=== PATIENT | male | born 1950 | race Caucasian/White ===

== ENCOUNTER → 2018-04-06 | Outpatient (CLI) | payer BC ==
[2018-04-06 11:40] LABS: CREATININE 1.2 mg/dL (0.6-1.3)
== END ==
LOC: M.MRI 10:59
PROVIDERS: Internal Medicine
DX: I67.82 Cerebral ischemia (principal); D49.6 Neoplasm of unspecified behavior of brain; I10 Essential (primary) hypertension; Z87.898 Personal history of other specified conditions

== ENCOUNTER → 2018-08-26 | Outpatient (CLI) | payer BC | LOC: M.RAD 16:16 | DX: M25.722 Osteophyte, left elbow (principal); M77.8 Other enthesopathies, not elsewhere classified ==

== ENCOUNTER → 2019-03-31 | Outpatient (CLI) | payer BC ==
[2019-03-31 11:06] LABS: CREATININE 1.1 mg/dL (0.6-1.3)
== END ==
LOC: M.LAB 10:27 → M.CT 10:27
PROVIDERS: Internal Medicine Gastroenterology
DX: N28.1 Cyst of kidney, acquired (principal); K38.8 Other specified diseases of appendix; R94.4 Abnormal results of kidney function studies; K56.41 Fecal impaction; N40.0 Benign prostatic hyperplasia without lower urinary tract symptoms; M47.817 Spondylosis without myelopathy or radiculopathy, lumbosacral region

== ENCOUNTER → 2019-05-08 | Day surgery (SDC) | payer BC, MEDICARE ==
[~2019-05-08] MED LIST: AMOXICILLIN 50500 MG PO; CIPRO500 M1 PO; COLACE100 MG PO; D-20002000 UNIT PO; FLOMAX0.4 MG PO; FLONASE 0.05%50 MCG NASAL; KEFLEX500 M1 PO; LEVSIN-SL0.125 MG PO; LIPITOR 20 MG T20 M1 PO; MIRALAX119 GM PO; NORCO 5-325 TA1 EAC1 PO; PHENAZOPYRIDIN200 M2 PO; SILDENAFIL20 MG PO; TESTOSTERO200 MG/11 IM
[2019-05-08 06:47] LABS: HEMATOCRIT 48.3 % (42.0-52.0); HEMOGLOBIN 17.1 gm/dL (14.0-18.0); MCH 32.8 pg (26.0-34.0); MCHC 35.5 g/dL (28.0-37.0); MCV 92.6 fL (80.0-100.0); MPV 7.7 fl. (7.2-11.1); RBC 5.22 mil/uL (4.50-6.00); RDW-CV 13.2 % (10.5-14.5)
[2019-05-08 06:54] LABS: CALCIUM 9.2 mg/dL (8.5-10.1); CREATININE 1.2 mg/dL (0.6-1.3); POTASSIUM 4.1 mmol/L (3.5-5.1)
[2019-05-08 06:59] LABS: ALBUMIN 3.9 g/dL (3.4-5.0); TOTAL BILIRUBIN 1.1 mg/dL (<0.1-1.0); TOTAL PROTEIN 6.9 g/dL (6.4-8.2)
--- NOTE | 2019-05-09 08:41 | EKG ---
[place] [address] ELECTROCARDIOGRAM REPORT Name: JAJA BOB Room: [facility]#: [id number] Admission: 05/08/19 Attend Phys: Jorge Luis Chinchilla DO Discharge: Date of : 50 Report #: [id number] THIS REPORT FOR: //name// [facility] Test Date: 2019-05-08 Test Time: 07:27:22 Pat Name: JAJA BOB Department: Room: Gender: M Incident Response Analyst: : 1950 Requested By: Jorge Luis Chinchilla Order Number: [id number] Reading MD: Micah Meza Measurements Intervals Bixby Rate: 71 P: 74 SD: 194 QRS: 6 QRSD: 85 T: 17 QT: 373 QTc: 406 Interpretive Statements Sinus rhythm Minimal ST elevation, anterior leads, consider early repolarization No previous ECG available for comparison Electronically Signed On 05-09-2019 8:41:46 CDT by Micah Meza [email or web address] <ELECTRONICALLY SIGNED> By: Micah Meza MD, [facility] 05/09/19 0841 0727 0727 Micah Meza MD, FAC /EPI
--- NOTE | 2019-05-12 13:07 | PATH ---
[address] [address] PATHOLOGY RPT PROCEDURE Name: ROBSON BOB Room: [facility] Brian#: [id number] Admission: 05/08/19 Date of : 50 Discharge: Report #: [id number] Path Case #: [id number] [facility] Accession Number: [id number] . 01 Material submitted: . PART A: appendix - APPENDIX PART B: axillary tail of breast - RIGHT AXILLARY SKIN TAGS. Modifiers: right . 01 Clinical history: . Appendicolith . 02 Diagnosis: A. Appendix: - Benign and noninflamed appendix with prominent luminal fecalith and with fibrofatty obliteration of distal tip lumen. . B. Right axillary skin tags: - Multiple benign squamous papillomas, several with chronic inflammation. . ([place]; 05/11/2019) RUFINO 05/11/2019 1757 Local . 02 Electronically signed: . Alvaro Barton MD, Pathologist NPI- [id number] . 01 Gross description: . A. The specimen is received in formalin, labeled "Robson Bob, appendix" and consists of an appendix measuring 4.5 cm in length and ranging from 0.3 cm (tip) to 1.5 cm (proximal margin) in diameter. There is mesoappendix lining the entire specimen measuring up to 2.4 cm thick. The margin is closed with a linear line of michelle and inked black. Sectioning reveals a dilated proximal lumen which becomes pinpoint at the tip. Occluding the proximal margin is a fecalith measuring 1.3 x 0.9 cm. Surveillance Operator sections are submitted in A1-A2. . B. The specimen is received in formalin, labeled "Robson Bob, right axillary skin tags" and consists of 3 pink-shi skin tag measuring between 0.3 x 0.3 x 0.2 cm and 0.8 x 0.5 x 0.4 cm. The margins are inked black and they are entirely submitted in B1. ([facility]; 05/09/2019) . After initial microscopic examination the remainder of the appendix is submitted in A3-A4. ([facility]; 05/11/2019) SYU/SYU 05/12/2019 [facility] Local . 02 Pathologist provided ICD-10: [place] [address] PATHOLOGY RPT PROCEDURE Name: BOBROBSON SPENCER Room: [facility]#: [id number] Admission: 05/08/19 Date of : 50 Discharge: Report #: [id number] Path Case #: [id number] K38.1, K38.8, L91.8 . 02 CPT . 477739, [id number] Specimen Comment: A courtesy copy of this report has been sent to Specimen Comment: [phone], . Specimen Comment: Report sent to / DR CARMEN Performed at: [id number] [facility] [address], [place], [place] [id number] MD Cesar Bowen MD Phone: [phone] Performed at: 02 [facility] [address], [place], [place] [id number] MD Alvaro Barton MD Phone: [phone]
--- NOTE | 2019-05-30 13:35 | OP ---
[address] [address] OPERATIVE REPORT Name: JAJA BOB Room: [facility].#: [id number] Admission: 05/08/19 Attend Phys: Jorge Luis Chinchilla DO Discharge: Date of : 50 Report #: [id number] THIS REPORT FOR: //name// CC: Jorge Luis Mustafa MD DICTATED BY: Carla Zee DO DATE OF SERVICE: 05/08/2019 PREOPERATIVE DIAGNOSES: Appendicolith and chronic appendicitis as well as right axillary skin tags x 3. POSTOPERATIVE DIAGNOSES: Appendicolith and chronic appendicitis as well as right axillary skin tags x 3. PRIMARY SURGEON: Jorge Luis Chinchilla DO DIRECTOR CHILD ABUSE THERAPY: Carla Zee DO, PGY2 SECOND RETAIL SALESMAN: DEANNA Bedoya PROCEDURE: Laparoscopic appendectomy and excision of skin tags x 3 in the right axilla. ANESTHESIA: General and local. ESTIMATED BLOOD LOSS: 20 mL. SPECIMENS: Appendix and skin tags x 3. INDICATIONS FOR PROCEDURE: The patient is a 69-year-old gentleman who presented to our office after a screening colonoscopy where he was noted to have a large visible appendicolith in the appendiceal orifice and then had a followup CAT scan, which also confirmed the presence of a very large appendicolith. At that time, he was not having any symptoms. No right lower quadrant pain. No nausea, vomiting, diarrhea, fever or chills. It was recommended that he undergo laparoscopic appendectomy. However, the patient had a previously scheduled vacation that he wanted to go on prior to surgery. It was discussed with him that he was at high risk for developing acute appendicitis and could even develop further appendiceal perforation. He voiced complete understanding and still wished to go on his vacation and schedule surgery at a later time, he was scheduled for surgery. The procedure, risks, benefits and possible complications to include bleeding, infection, injury to surrounding structures and the risks of surgery were discussed with the patient in [place] [address] OPERATIVE REPORT Name: PAULINOJAJAPATTI SORENSON Room: [facility].#: [id number] Admission: 05/08/19 Attend Phys: Jorge Luis Chinchilla DO Discharge: Date of : 50 Report #: [id number] complete understanding and wished to proceed. DESCRIPTION OF PROCEDURE: Informed consent was obtained. The patient was then taken to the operating room and placed supine on the operating room table. General anesthesia was induced without difficulty. The patient's left arm was tucked at the side. Preoperative antibiotics were given. SCDs were placed on bilateral lower extremities. The patient was prepped and draped in the standard sterile fashion. Timeout was performed to ensure correct patient and procedure. We began by making a vertical supraumbilical incision using a #11 blade scalpel. Incision was carried down through subcutaneous tissue using electrocautery. [place] and electrocautery were used to dissect down to the level of the fascia. The fascia was scored with electrocautery and grasped between 2 Kochers. Fascia was elevated and then incised using electrocautery. Peritoneum was entered bluntly using a hemostat. The 0 Vicryl stay sutures were placed on either side of our fascial opening. A 5 mm Thompson trocar was then inserted through our fascial opening. Abdomen was insufflated without difficulty. Laparoscopic camera was inserted and a sweep of the anterior abdominal contents was performed. There were no obvious abnormalities in the right lower quadrant. Upon further inspection of the anterior abdominal contents, it was noted that the patient does have bilateral inguinal hernias. Otherwise, there were no obvious abnormalities. A suprapubic 5 mm trocar was inserted under direct visualization. The laparoscopic Angelika was used to explore the right lower quadrant. The patient was then placed in the Trendelenburg position with the left side down. Cecum was identified. Appendix was not readily identified. At this point, our left lower quadrant 12 mm trocar was inserted under direct visualization. Following further inspection of the right lower quadrant, appendix was noted to dive down in a retrocecal position. Harmonic scalpel was then used to take down periappendiceal adhesions. At this point, we were able to visualize what appeared to be a large stone within the appendiceal orifice at the junction of the appendix and the cecum. We continued our dissection using the Harmonic scalpel. Harmonic scalpel was used to take down the mesoappendix until we reached the base of the appendix. A 45 mm purple load on the Endo-GAYATRI stapler was then used to come across the base of the appendix and a second 45 mm purple load on the Endo-GAYATRI stapler was used to come across the remainder of the base of the appendix so that we were able to include the area with a large appendicolith. The appendix was then placed within the EndoCatch bag. Right lower quadrant was inspected to ensure hemostasis. Suction crm analyst was used to irrigate the right lower quadrant. A final sweep of the anterior abdominal contents was performed. Our left lower quadrant 12 mm trocar was closed using PMI closure device. The suprapubic 5 mm trocar was removed under direct visualization. Abdomen was desufflated. The fascia at the supraumbilical incision was closed using 0 Vicryl suture in a gygcgt-td-hgwkb fashion. The subcutaneous tissue was closed using 3-0 Vicryl suture in a simple interrupted and inverted fashion. Skin was closed using 4-0 Monocryl suture in a running subcuticular fashion. Left lower quadrant and suprapubic trocar sites were closed using 4-0 Monocryl suture in a simple interrupted and inverted [address] [address] OPERATIVE REPORT Name: JAJA BOB Room: [facility].#: [id number] Admission: 05/08/19 Attend Phys: Jorge Luis Chinchilla DO Discharge: Date of : 50 Report #: [id number] fashion. Sterile dressings were applied using Mastisol, Steri-Strips, Tegaderm, 4 x 4s and Medipore tape. We then turned our attention to the right axilla. Right axilla was prepped and draped in the standard sterile fashion. Each skin tag was grasped with an Adson forceps and then removed using electrocautery and sent for permanent pathology. Mupirocin was applied to each of the skin tag sites as well as a Band-Aid. The patient tolerated the procedure very well. He was then allowed to awaken in the operating room and was transferred to the PACU in stable condition with plans to discharge home later today. <ELECTRONICALLY SIGNED> By: Jorge Luis Chinchilla DO 05/30/19 1335 0937 1013Amechelle Chinchilla DO /sanjay
== END | disposition home or self-care (01) ==
LOC: M.SUR 06:20
PROVIDERS: Surgery
DX: K38.1 Appendicular concretions (principal); K36 Other appendicitis; L91.8 Other hypertrophic disorders of the skin; Z79.899 Other long term (current) drug therapy; Z98.890 Other specified postprocedural states; Z79.891 Long term (current) use of opiate analgesic

== ENCOUNTER 2019-05-13 09:40 | Emergency (ER) | payer BC, MEDICARE ==
[~2019-05-13] VITALS: Ht 177.8 cm; Wt 93.4 kg
[~2019-05-13 09:40] MED LIST changes: -AMOXICILLIN 50500 MG PO; -CIPRO500 M1 PO; -COLACE100 MG PO; -D-20002000 UNIT PO; -KEFLEX500 M1 PO; -LEVSIN-SL0.125 MG PO; -MIRALAX119 GM PO; -PHENAZOPYRIDIN200 M2 PO; -SILDENAFIL20 MG PO
[2019-05-13] MEDS ORDERED: D-20002000 UNIT PO (10:09)
[2019-05-13] MEDS ORDERED: SILDENAFIL20 MG PO (10:10)
[2019-05-13] MEDS ORDERED: MIRALAX119 GM PO (10:10)
[2019-05-13 10:11] LABS: URINE BILIRUBIN NEGATIVE (Negative); URINE BLOOD TRACE (Negative); URINE CLARITY CLEAR; URINE COLOR YELLOW; URINE GLUCOSE-RANDOM NEGATIVE (Negative); URINE KETONES NEGATIVE (Negative); URINE LEUKOCYTES-REFLEX TRACE (Negative); URINE NITRITE-REFLEX NEGATIVE (Negative); URINE PROTEIN 1+ (Negative)
[2019-05-13 10:30] LABS: SQUAMOUS 0-3 Few /LPF (0-3); URINE WBC-REFLEX >25 Many /HPF (0-5)
[2019-05-13 10:33] LABS: URINE RBC 0-2 Rare /HPF (0-2)
[2019-05-13 10:34] LABS: CASTS None Seen /LPF (None Seen); CRYSTALS None Seen /LPF (None Seen); MUCUS >6 Heavy strn/LPF (None Seen)
[2019-05-13 10:43] LABS: CALCIUM 9.1 mg/dL (8.5-10.1); CREATININE 1.2 mg/dL (0.6-1.3); POTASSIUM 4.2 mmol/L (3.5-5.1)
[2019-05-13] MEDS ORDERED: PHENAZOPYRIDIN200 M2 PO (10:52)
[2019-05-13] MEDS ORDERED: KEFLEX500 M1 PO (10:52)
[2019-05-13 11:11] VITALS: BP 139/69
[2019-05-16] MEDS ORDERED: CIPRO500 M1 PO (15:36)
== END 2019-05-13 11:11 | disposition home or self-care (01) ==
LOC: M.ERS 09:40
PROVIDERS: Emergency Medicine Emergency Medical Services
DX: N39.0 Urinary tract infection, site not specified (principal)

== ENCOUNTER 2019-05-17 09:08 | Inpatient (IN) | payer BC, MEDICARE ==
[~2019-05-17] VITALS: Ht 177.8 cm; Wt 91.2 kg
--- NOTE | ~2019-05-17 | H ---
[address] [address] HISTORY AND PHYSICAL Name: JAJA BOB Room: [address] IN M.R.#: [id number] Admission: 05/17/19 Attend Phys: Silke Scott Discharge: 05/19/19 Date of : 50 Report #: [id number] THIS REPORT FOR: //name// For History and Physical please refer to the handwritten note in the patient's medical record. By: 0649Medical Records Staff AISHA /GIGI
[~2019-05-17 09:08] MED LIST changes: +CIPRO500 M1 PO; +D-20002000 UNIT PO; +KEFLEX500 M1 PO; +MIRALAX119 GM PO; +PHENAZOPYRIDIN200 M2 PO; +SILDENAFIL20 MG PO
[2019-05-17 10:52] VITALS: BP 141/80
[2019-05-17 13:00] LABS: HEMATOCRIT 41.5 % (42.0-52.0); HEMOGLOBIN 14.6 gm/dL (14.0-18.0)
[2019-05-17 13:14] LABS: CALCIUM 8.6 mg/dL (8.5-10.1); CREATININE 1.2 mg/dL (0.6-1.3); MAGNESIUM 2.2 mg/dL (1.8-2.4); POTASSIUM 4.4 mmol/L (3.5-5.1)
[2019-05-17 19:30] VITALS: BP 135/81
[2019-05-17 23:46] VITALS: BP 127/79
[2019-05-18 03:49] VITALS: BP 117/77
[2019-05-18 03:58] LABS: POTASSIUM 4.1 mmol/L (3.5-5.1)
[2019-05-18 04:13] LABS: HEMATOCRIT 40.9 % (42.0-52.0); HEMOGLOBIN 13.8 gm/dL (14.0-18.0); MCH 31.6 pg (26.0-34.0); MCHC 33.7 g/dL (28.0-37.0); MCV 93.9 fL (80.0-100.0); MPV 7.8 fl. (7.2-11.1); RBC 4.36 mil/uL (4.50-6.00); RDW-CV 13.1 % (10.5-14.5); WBC 12.8 thou/uL (4.0-11.0)
[2019-05-18 08:10] VITALS: BP 127/72
[2019-05-18 16:00] VITALS: BP 123/69
[2019-05-18 20:00] VITALS: BP 135/78
[2019-05-18 23:30] VITALS: BP 151/87
[2019-05-19 04:00] VITALS: BP 150/84
[2019-05-19 07:30] VITALS: BP 147/90
[2019-05-19 08:24] LABS: HEMATOCRIT 43.6 % (42.0-52.0); HEMOGLOBIN 15.2 gm/dL (14.0-18.0); MCH 32.4 pg (26.0-34.0); MCHC 34.8 g/dL (28.0-37.0); RBC 4.69 mil/uL (4.50-6.00); RDW-CV 12.9 % (10.5-14.5); WBC 9.4 thou/uL (4.0-11.0)
[2019-05-19 08:32] LABS: CALCIUM 7.9 mg/dL (8.5-10.1); CREATININE 1.2 mg/dL (0.6-1.3); POTASSIUM 3.7 mmol/L (3.5-5.1)
[2019-05-19 09:34] VITALS: BP 147/90
[2019-05-19] MEDS ORDERED: AMOXICILLIN 50500 MG PO (09:54)
[2019-05-19] MEDS ORDERED: COLACE100 MG PO (09:54)
[2019-05-19] MEDS ORDERED: NORCO 5-325 TA1 EAC1 PO (09:55)
[2019-05-19] MEDS ORDERED: LEVSIN-SL0.125 MG PO (10:20)
--- NOTE | 2019-05-19 17:06 | PATH ---
[address] [address] PATHOLOGY RPT PROCEDURE Name: ROBSON BOB Room: [address] IN .R.#: [id number] Admission: 05/17/19 Date of : 50 Discharge: 05/19/19 Report #: [id number] Path Case #: [id number] [facility] Accession Number: [id number] . 01 Material submitted: . prostate - PROSTATE CHIPS . 01 Clinical history: . Prostate abscess, BPH . 02 Diagnosis: Prostate chips: - Benign prostatic tissue with chronic and extensive acute inflammation. . ([place]:mml; 05/19/2019) QL 05/19/2019 1124 Local . 02 Electronically signed: . Alvaro Barton MD, Pathologist NPI- [id number] . 01 Gross description: . Received in cytology fixative labeled "Robson Bob, prostate chips," is a 12 g aggregate of pink-shi to shi-brown soft tissue fragments measuring 7.4 x 5.6 x 1.2 cm in aggregate dimensions. The specimen is submitted representatively in cassettes A1 through A7. (DAC; 05/18/2019) XDC/XDC 05/18/2019 1215 Local . 02 Pathologist provided ICD-10: N41.1, N41.0 . 02 CPT . 790085 Specimen Comment: A courtesy copy of this report has been sent to [phone] Specimen Comment: [phone] Specimen Comment: Report sent to / DR CARMEN Performed at: [address], [place] [id number] MD Cesar Bowen MD Phone: [phone] Performed at: 02 [facility] [address], [place], [place] [id number] MD Alvaro Barton MD Phone: [phone]
--- NOTE | 2019-06-05 16:56 | OP ---
[address] [address] OPERATIVE REPORT Name: BOB,JAJA DELTA Room: [address] IN M.R.#: [id number] Admission: 05/17/19 Attend Phys: Silke Scott Discharge: 05/19/19 Date of : 50 Report #: [id number] THIS REPORT FOR: //name// CC: Stas Mustafa SURGEON: Stas Bustillos MD PREOPERATIVE DIAGNOSES: Prostatic abscess and BPH. POSTOPERATIVE DIAGNOSIS: Prostatic abscess and BPH. PROCEDURE: Panendoscopy and cystoscopy and transurethral resection of the prostate, this requires a 22-modifier secondary to prostatic abscess and infected prostate. COMPLICATIONS: No complication. INDICATIONS: This is a 69-year-old white male with a history of BPH. He began having increased urinary symptoms about 6 weeks ago, but did slightly improve; however, he developed severe symptoms after having an elective appendectomy and on exam, but 1 week post-appendectomy, he had a severely swollen and protuberant prostate. CT scan showed probable abscess in the transition zone area. The patient presents now for a TURP. He understands risks of bleeding, infection, need for another procedure, cardiovascular and pulmonary complications. He has increased risk of all these complications secondary to his infections and wishes to proceed. He understands he may need a catheter for several days. DESCRIPTION FOR PROCEDURE: Informed consent was obtained. The patient was sterilely prepped and draped in dorsal lithotomy position, given appropriate antibiotics. Cystoscopy was carried out. The left ureter was completely normal. He did have a question on his CT scan of a possible calcification distally in the left distal ureter; however, given the fact that he was markedly inflamed and the prostate and had purulent material coming from multiple locations in the prostate, it was decided to not do a retrograde pyelogram as he has no hydronephrosis and no left flank pain and because of the low likelihood that this is any factor in his current prostatitis. Right ureteral orifice was also normal. We then changed to 24-Setswana resectoscope and the transurethral resection of the prostate was undertaken without difficulties really. He did have quite a bit of inflamed tissue and did see a lot of small pockets of purulent looking material, but no dominant large pockets. I did a circumferential TUR and especially actually anteriorly secondary to what we are seeing on the CT scans to get back to the level of the surgical capsule and then also into the ejaculatory duct areas on the floor. Hemostasis was controlled with electrocautery. All the chips were evacuated. At the end of the procedure, both ureteral orifices and the continent zone of the sphincter mechanism and the verumontanum were left intact. [place] [address] OPERATIVE REPORT Name: JAJA BOB Room: [address] IN M.R.#: [id number] Admission: 05/17/19 Attend Phys: Silke Scott Discharge: 05/19/19 Date of : 50 Report #: [id number] clear. We did send some of the tissue also for culture as well as pathologic exam. The patient tolerated this well. The irrigations were clear. Taken to recovery room in good condition, would recommend approximately 48 hours of IV antibiotics prior to discharge and then probably remove the Alcantara catheter in about 3-5 days. <ELECTRONICALLY SIGNED> By: Stas Bustillos MD 06/05/19 1656 1021 1048Stas Bustillos MD /nt
== END 2019-05-19 11:26 | disposition home or self-care (01) | DRG 713 ==
LOC: M.TBA 09:08 → M.ORTHSURG 11:32 → M.TBA 11:34 → M.ORTHSURG 13:48 → M.SUR 14:59 → EDSTATUS 15:15 → M.TBA 16:09 → M.ORTHSURG 05-19 11:26
PROVIDERS: Urology; ADMIT Urology
PROC: 0VT08ZZ Resection of Prostate, Via Natural or Artificial Opening Endoscopic (ICD-10-PCS; principal; 2019-05-17)
DX: N40.0 Benign prostatic hyperplasia without lower urinary tract symptoms (principal); E23.0 Hypopituitarism; N41.2 Abscess of prostate; N28.1 Cyst of kidney, acquired; Z90.49 Acquired absence of other specified parts of digestive tract; Z79.899 Other long term (current) drug therapy; Z23 Encounter for immunization

== ENCOUNTER → 2020-03-20 | Outpatient (CLI) | payer BC ==
[~2020-03-20] MED LIST changes: +AMOXICILLIN 50500 MG PO; +COLACE100 MG PO; +LEVSIN-SL0.125 MG PO
[2020-03-20 07:24] LABS: CREATININE 1.2 mg/dL (0.6-1.3)
== END ==
LOC: M.LAB 02-28 08:48 → M.MRI 03-19 08:15 → M.LAB 07:05
PROVIDERS: ATTEND Internal Medicine
DX: G93.89 Other specified disorders of brain (principal); D32.0 Benign neoplasm of cerebral meninges; R41.82 Altered mental status, unspecified; E78.5 Hyperlipidemia, unspecified

== ENCOUNTER → 2021-05-12 | Outpatient (CLI) | payer MEDICARE, OTHER ==
[2021-05-12 13:05] LABS: ABSOLUTE EOSINOPHILS 0.1 thou/uL (0.0-0.7); ABSOLUTE LYMPHOCYTES 1.5 thou/uL (0.8-5.3); ABSOLUTE MONOCYTES 0.5 thou/uL (0.0-1.2); ABSOLUTE NEUTROPHILS 3.9 thou/uL (1.6-8.1); BASOPHILS 0.6 %; EOSINOPHILS 0.9 %; HEMATOCRIT 48.5 % (42.0-52.0); HEMOGLOBIN 16.6 gm/dL (14.0-18.0); LYMPHOCYTES 25.3 %; MCH 32.6 pg (26.0-34.0); MCHC 34.3 g/dL (28.0-37.0); MCV 95.2 fL (80.0-100.0); MONOCYTES 8.1 %; MPV 7.5 fl. (7.2-11.1); NUCLEATED RBCS 0 /100WBC; PLATELET COUNT* 175 thou/uL (150-400); POLYS 65.1 %; RDW-CV 13.1 % (10.5-14.5)
[2021-05-12 13:18] LABS: CALCIUM 8.4 mg/dL (8.5-10.1); CREATININE 1.1 mg/dL (0.6-1.3); POTASSIUM 4.1 mmol/L (3.5-5.1)
[2021-05-12 13:23] LABS: ALBUMIN 4.1 g/dL (3.4-5.0); TOTAL BILIRUBIN 0.7 mg/dL (<0.1-1.0); TOTAL PROTEIN 6.9 g/dL (6.4-8.2)
== END ==
LOC: M.LAB 12:49
PROVIDERS: ATTEND Internal Medicine
DX: R07.9 Chest pain, unspecified (principal)